=== PATIENT | male | born 1960 | race Caucasian/White ===

== ENCOUNTER → 2023-05-30 09:14 | Outpatient (CLI) | payer OTHER, SELFPAY ==
--- NOTE | ~2023-05-30 | XR_ITS ---
EXAM: [id number]_CR DATE: 05/30/2023 09:48 HISTORY: Neck pain . COMPARISON: None available. FINDINGS: Uncomplicated appearing ACDF hardware with interbody device at C5-6. Craniocervical associa tion and atlantoaxial joint are aligned. No prevertebral soft tissue swelling. Vertebral bodies are a ligned. Vertebral body heights are maintained. Normal disc spaces. Normal facets and posterior elemen ts. IMPRESSION: Uncomplicated C5-6 ACDF. Reviewed, dictated and finalized at location K. IMPRESSION: Uncomplicated C5-6 ACDF.
== END ==
DX: M54.2 Cervicalgia (principal)
CPT/HCPCS: 72040